=== PATIENT | female | born 1945 | race Caucasian/White ===

== ENCOUNTER 2016-12-27 12:36 | Outpatient (CLI) | payer OTHER ==
[~2016-12-27 12:36] MED LIST: AMLODIPINE BESY10 MG PO; ASPIRIN ADULT L81 MG PO; B COMPLEX PO; CALCIUM CARBON500 MG PO; DARBEPOETIN ALFA; DOCUSATE SODIU100 MG PO; LEVOTHYROXINE50 MCG PO; METOPROLOL SUCC25 MG PO; PRILOSEC20 MG PO; RENAGEL800 MG PO; SENSIPAR30 MG PO; SEROQUEL XR50 MG PO; SIMVASTATIN20 MG PO; VITAMIN D2400 UNIT PO
--- NOTE | 2016-12-27 13:14 | DIAGNOSTIC IMAGING REPORT ---
PROCEDURE: DEXA BONE DENSITY STUDY CLINICAL INDICATION: SCREENING COMPARISON: DEXA 05/29/2012 FINDINGS: LUMBAR SPINE: Bone mineral density 0.815 g/cm2, T score -2.1 osteopenia which represents a 1.1% decrease from the previous study LEFT HIP: Bone mineral density 0.670 g/cm2, T score -2.2 osteopenia which represents a 1.6% improvement from the previous study LEFT FEMORAL NECK: Bone mineral density 0.552 g/cm2, T score -2.7 osteoporosis which represents a 9.3% improvement from the previous study FRACTURE RISK CALCULATION ( when applicable): 10-year fracture risk of a major osteoporotic fracture and of a hip fracture not reported because some T-score at or below -2.5 (T score greater or equal to -1.0 to: NORMAL) (T score from -1.1 to -2.4: OSTEOPENIA) (T score ess than or equal to -2.5: OSTEOPOROSIS) IMPRESSION: 1. Osteopenia lumbar spine and hip. Osteoporosis femoral neck with a a 9.3% improvement in bone mineral density from the previous study
== END 2016-12-27 23:00 ==
LOC: XR SRH 12:36
DX: M85.89 Other specified disorders of bone density and structure, multiple sites (principal); M81.0 Age-related osteoporosis without current pathological fracture